=== PATIENT | male | born 1960 ===

== ENCOUNTER → 2022-04-06 07:36 | Outpatient (CLI) | payer SELFPAY ==
--- NOTE | ~2022-04-06 | MR_ITS ---
EXAMINATION: MR knee RT wo con DATE: 04/06/2022 08:34 INDICATION: Right knee pain TECHNIQUE: Magnetic resonance imaging (MRI) of the right knee was performed without intravenous contr ast. Sequences included axial PD-weighted FS FSE, coronal PD-weighted FSE and PD-weighted FS FSE, sag ittal PD-weighted FSE, and sagittal T2-weighted FS FSE. COMPARISON: None. FINDINGS: Medial compartment: Medial meniscus intact. Mild diffuse cartilage thinning and osteophytosis. Focal partial thickness ca rtilage defect on the medial condyle. Lateral compartment: Apical tear of the posterior horn. Mild diffuse cartilage thinning and osteophytosis. Multifocal part ial and full-thickness cartilage defects on the medial condyle and lateral tibial plateau. Patellofemoral compartment: Full-thickness cartilage loss on the medial facet. Retinacula intact. Ligaments and tendons: ACL, PCL, MCL, and LCL are intact. Flexor and extensor tendons are intact. Fluid: No significant joint effusion. Small volume Cottrell's cyst. Osseous/other: No concerning focal or diffuse marrow signal. Anterior subcutaneous edema. Small somewhat rectangular appearing 1.3 x 2.1 x 4 mm isointensity, surrounded by fluid in the subcutaneous tissues medial to t he patellar tendon just anterior to the medial tibial plateau (axial images 20 and 21). IMPRESSION: 1. Apical tear of the posterior horn, lateral meniscus. 2. Moderate tricompartmental osteoarthritis, with multiple partial and full-thickness focal cartilage defects, described above. 3. Possible soft tissue foreign body versus artifact in the subcutaneous tissues anterior to the medi al tibial plateau. Consider correlation with radiographs and possibly soft tissue ultrasound for furt her evaluation, particularly if there is a history of laceration or penetrating injury in this area. Reviewed, dictated and finalized at location K. IMPRESSION: 1. Apical tear of the posterior horn, lateral meniscus. 2. Moderate tricompartmental osteoarthritis, with multiple partial and full-thi ckness focal cartilage defects, described above. 3. Possible soft tissue foreign body versus artifact in the subcutaneous tissue s anterior to the medial tibial plateau. Consider correlation with radiographs and possibly soft tissue ultrasound for further evaluation, particularly if the re is a history of laceration or penetrating injury in this area.
== END ==
PROVIDERS: PCP Family Medicine; Visit Provider Orthopaedic Surgery
DX: M25.561 Pain in right knee (principal); S83.281A Other tear of lateral meniscus, current injury, right knee, initial encounter; M17.11 Unilateral primary osteoarthritis, right knee; M79.89 Other specified soft tissue disorders
CPT/HCPCS: 73721

== ENCOUNTER → 2023-01-07 10:19 | Outpatient (CLI) | payer OTHER, SELFPAY ==
--- NOTE | ~2023-01-07 | XR_ITS ---
AP view of the pelvis and AP and lateral views of the right hip Clinical history: Pain Findings: No acute fracture or dislocation is seen. There is mild to moderate degenerative change of the right hip joint. Left hip joint is preserved. Soft tissues are unremarkable. Impression: [id number] degenerative change of the right hip joint. Reviewed, dictated and finalized at location . Impression: [id number] degenerative change of the right hip joint.
== END ==
PROVIDERS: PCP Family Medicine; Visit Provider Family Medicine
DX: M25.551 Pain in right hip (principal)
CPT/HCPCS: 73502

== ENCOUNTER → 2023-08-05 11:29 | Outpatient (CLI) | payer OTHER, SELFPAY ==
--- NOTE | ~2023-08-05 | XR_ITS ---
Right Knee Technique: AP, lateral, and sunrise views were obtained. Clinical History: Pain Findings: No fracture or dislocation is seen. Osseous alignment is anatomic. Mild tricompartmental de generative spurring is present. Soft tissues are unremarkable. No joint effusion is seen. Impression: Mild tricompartmental degenerative spurring. Reviewed, dictated and finalized at location . OVEMENT NURSE Impression: Mild tricompartmental degenerative spurring.
== END ==
DX: M25.561 Pain in right knee (principal); M77.8 Other enthesopathies, not elsewhere classified
CPT/HCPCS: 73562